=== PATIENT | female | born 1975 | race Caucasian/White ===

== ENCOUNTER 2021-05-29 10:22 | Day surgery (SDC) | payer BC ==
[~2021-05-29] VITALS: Ht 154.9 cm; Wt 90.9 kg
[~2021-05-29 10:22] MED LIST: BUPIVACAINE MPF 0.25% 30 ML VIAL. ONE; GABA300C18 PO; HYDR-2761 PO; LEXAPRO20 MG PO; OMEP40CA7 PO
[2021-05-29] MEDS ORDERED: IV RINGERS,LACTATED 1000ML 1,000 ML IV SCH ×2 (11:00→12:15)
--- NOTE | 2021-05-29 11:07 | PDOC1 ---
History and Physical Date of Service: DOS: DATE: 05/29/21 TIME: 11:06 Chief Complaint: Problems: (1) Closed left ankle fracture History of Present Illness: HPI: Patient here for her ankle fracture that occurred last Thursday after she fell on stairs. Seen in preop area no acute complaints. Nervous for surgery. Said she had a hysterectomy few years ago and took a prolonged time to recover from the anesthesia. Denies any heart or kidney problems. Denies having diabetes or previous stroke. Past Medical/Surgical History: PMH/PSH: Left ankle fracture, status post hysterectomy Allergies: Allergies: Coded Allergies: amoxicillin (Verified Adverse Reaction, Intermediate, Nausea and Vomiting, 05/29/21) clavulanic acid (Verified Adverse Reaction, Intermediate, Nausea and Vomiting, 05/29/21) Family History: Family History: noncontributory Social History: Social History: Social alcohol, smoker, denies drug use Current Medications: Current Medications Current Medications Cefazolin Sodium/ Dextrose 50 ml @ 100 mls/hr 1X PREOP PRN IV PRIOR TO PROCEDURE; Start 05/29/21 at 06:00; Stop 05/29/21 at 18:00 Bupivacaine HCl (Sensorcaine Mpf 0.25%) 30 ml STK-MED ONCE .ROUTE ; Start 05/29/21 at 10:22; Stop 05/29/21 at 10:23; Status DC Ringer's Solution 1,000 ml @ 100 mls/hr Q10H IV ; Start 05/29/21 at 11:00 Active Scripts Active Reported Omeprazole 40 Mg Capsule.dr 40 Mg PO DAILY Lexapro (Escitalopram Oxalate) 20 Mg Tablet 20 Mg PO HS Gabapentin 300 Mg Capsule 100 Mg PO TID Hydrocodone-Apap 5-325 (Hydrocodone Bit/Acetaminophen) 1 Tab Tablet 1 Tab PO PRN Q6HRS PRN ROS: Review of Systems Review of System Negative unless in HPI Physical Exam: Physcial Exam: GEN: No apparent distress. Alert and oriented HEENT: Normal cephalic, atraumatic, external auditory canals are patent EYES: Extraocular muscles are intact, pupil are equally round and reactive to light and accommodation MUSCULOSKELETAL: Well developed , well nourished, good range of motion ENDOCRINE: No thyromegaly was palpated LYMPHATICS: No cervical chain or axillary nodes were noted HEMATOPOIETIC: No bruising NECK: Supple, no JVD, no thyromegaly was noted LUNGS: Clear to auscultation in all lung luke without rhonchi or wheezing HEART: RRR, S1, S2 present. Peripheral pulses intact, no obvious murmurs noted ABDOMEN: Soft, nontender. Positive bowel sounds, no organomegaly, normal bowel sounds EXTREMITIES: Without clubbing, cyanosis, or edema. Pedal pulses intact. Negative Homans sign NEUROLOGIC: Normal speech and tone. A&O x 3, moves all extremities, no obvious focal deficits PSYCHIATRIC: Normal affect, normal mood. Stable SKIN: No ulcerations or rashes, good skin turgor, no jaundice VASCULAR: Good capillary refill, neurovascular bundle appears to be intact Assessment/Plan Assessment/Plan Preop for left ankle fracture Patient evaluated appropriate for surgery from my point of view. David is 0, low risk surgery. Justifications for Admission Other Justification JAXSON MANRIQUEZ MD May 29, 2021 11:07
[2021-05-29 11:08] VITALS: BP 159/92
[2021-05-29] MEDS ORDERED: SCOPOLAMINE 1.5MG PATCH. TD ONE (12:00)
[2021-05-29] MEDS ORDERED: fentaNYL PF VIAL 100 MCG/2 ML VIAL IVP ONE (12:15)
[2021-05-29] MEDS ORDERED: PROCHLORPERAZINE 10 MG/2 ML VIAL. IVP PRN (12:15)
[2021-05-29] MEDS ORDERED: HYDROmorphone 2 MG/ML VIAL IVP PRN (12:15)
[2021-05-29] MEDS ORDERED: MORPHINE SULFATE 2 MG/ML INJ. IVP PRN (12:15)
[2021-05-29] MEDS ORDERED: fentaNYL PF VIAL 100 MCG/2 ML VIAL IVP PRN (12:15)
[2021-05-29] MEDS ORDERED: LIDOCAINE 2% PF 5 ML VIAL. ONE (12:52)
[2021-05-29] MEDS ORDERED: PROPOFOL 10 MG/ML (20ML) VIAL. IV ONE ×2 (12:52→14:22)
[2021-05-29] MEDS ORDERED: ONDANSETRON PF 4 MG/2 ML VIAL. ONE (12:53)
[2021-05-29] MEDS ORDERED: DEXAMETHASONE SOD PHOS 4 MG/ML VIAL ONE (12:53)
[2021-05-29] MEDS ORDERED: KETOROLAC 30 MG/ML VIAL. ONE (12:53)
[2021-05-29] MEDS ORDERED: fentaNYL PF VIAL 100 MCG/2 ML VIAL ONE ×3 (12:55→16:22)
[2021-05-29] MEDS ORDERED: MIDAZOLAM HCL/PF 2 MG/2 ML VIAL. ONE (12:55)
[2021-05-29] MEDS ORDERED: SEVOFLURANE > 120 MINUTES. IH ONE (14:19)
[2021-05-29] MEDS ORDERED: HYDROmorphone 2 MG/ML VIAL ONE (15:40)
[2021-05-29] MEDS ORDERED: oxyCODONE/APAP 5/325 1 TAB TABLET PO ONE (16:15)
[2021-05-29] MEDS ORDERED: ACETAMINOPHEN 325 MG TABLET. PO ONE ×2 (16:15→16:35)
[2021-05-29] MEDS ORDERED: GABAPENTIN 100 MG CAPSULE. PO ONE (16:15)
--- NOTE | 2021-05-29 16:33 | PDOC4 ---
OPERATIVE NOTE Date: Date: May 29, 2021 Pre-Op Diagnosis: Left ankle trimalleolar fracture Post-Op Diagnosis: Same as above Procedure Performed: Left ankle open reduction and internal fixation with syndesmotic joint stabilization Surgeon: Angel Luis Woods DPM Anesthesia Type: General Blood Loss: 5 cc Specimans Obtained: None Findings: Long spiral fracture to the distal fibula, comminuted vertical avulsion fracture to the medial malleolus. Unstable syndesmotic joint upon stress. Complications: None Operative Note: Under mild sedation, patient was brought into the operating room and placed on an operating table in a supine position. Following a formal timeout, patient's identity, procedure and procedure sites were confirmed. Following IV prophylactic antibiotics, general anesthesia, a well-padded thigh tourniquet was placed to the left lower extremity. Then the left lower extremity was then scrubbed, prepped and draped using standard aseptic techniques. An Esmarch was used to exsanguinate the left foot and ankle and tourniquet was inflated to 250 millimercury. The attention was directed to the left ankle where a standard lateral approach was performed. Great care was taken to identify and retract all the neurovascular bundles including the superficial peroneal nerve. All bleeders were cauterized as necessary. Using sharp and blunt dissection, incision was taken deep to periosteum which was incised. Intraoperatively, we found a long spiral fracture to the distal fibula. The hematoma was evacuated and all interposed periosteum was removed from the fracture site. The wound was irrigated with copious saline then. At this time, the fracture was reduced with 2 bone clamps. Using standard AO technique, the fracture was stabilized with 3.5 millimeter screws from A to P. Intraoperative x-ray noted adequate fibular length cheondoism with restored dime sign. Then a standard anatomical fibular plate was placed to the lateral fibula and temporarily affixed with 2 olive wires. Intraoperative x-ray noted adequate position allowing 2 syndesmotic screws and adequate proximal fracture bridging. Then using standard AO techniques, a combination of locking and nonlocking 3.5 millimeter screws were used to affix the plate to the fibula. Again intraoperative x-ray noted adequate hardware position and length. The third malleolus fracture was spontaneously reduced based on x-ray on the lateral view as well. Then, the attention was directed to the medial left ankle where a standard linear incision was performed. Incision was carried deep using sharp and blunt dissection down to level of periosteum which was then incised. Care was taken to retract all the neurovascular bundles and all bleeders were cauterized as needed. Fracture was identified in a vertical pattern biased towards the posterior colliculus extending proximally encompassing at least one third of the distal medial malleolus. Distally, there were mild comminuted fractures to the lateral medial malleolus as well however not involving the gutter or articular surface. On the medial malleolus. All interposed periosteum was reflected and resected. The posterior tibial tendon was identified and protected throughout the procedure. Fracture site was reduced with a bone clamp. Next an antiglide plate was chosen over the screw fixation. The hook plate was not able to conform and capture the distal medial malleolar fragment. The trick screw with 3.5 mm fully threaded screw was placed into the proximal hole and then sequentially the distal screws were filled using standard AO techniques affixing the plate to the fracture site across the medial malleolus. The PT tendon was noted to posterior and free from bounding to the plate and hardware fixation. However given the contour of the distal malleolus, the plate was slightly palpable and prominent only at the distal margin. Final imaging were taken to verify position and length of the hardware which appeared adequate and ankle mortise was anatomical. Intraoperative syndesmotic stress test was performed which noted mild diastases across the tib-fib. Then two 3.5 mm cortical screws were placed through the distal lateral fibular plate traversing 3 cortices each to affix and stabilize the syndesmotic join with the foot held in a slightly adducted and internally rotated position to prevent overtensioning. Per literature review, the size of the screw, cortices traversed are insignificant for the stability and function outcome for syndesmotic stabilization. The hardware position, trajectory and le ngth were confirmed with satisfactory using intraoperative x-ray. Then stress test was noted negative. A lateral ankle x-ray was taken to confirm the reduction of the third malleolus. Stress test with a dental pick was insignificant for displacement of the Volkman's fracture. Then the decision was to not to fix the third malleolus especially as the syndesmotic joint was stabilized with 2 screws. The surgical sites were irrigated with copious saline solution. They were then closed in layers with 3-0 Vicryl, 4 Monocryl and 4-0 nylon. Then the surgical sites were anesthetized with 18 cc of 0.25% Marcaine plain. The sites were d ressed with Betadine soaked Adaptic, 4 x 4, ABD. The left lower extremity was then immobilized in a modified Ward compression splint with ankle held near 90 degrees. Then the tourniquet was deflated and adequate digital perfusion was noted. Patient tolerated the procedure and anesthesia well and then transferred to PACU for continuous recovery. Pending left ankle 3 view x-ray. ANGEL LUIS WOODS DPM May 29, 2021 16:33
[2021-05-29] MEDS: fentaNYL PF VIAL 100 MCG/2 ML VIAL IVP PRN ×2 (16:44→16:50)
[2021-05-29] MEDS ORDERED: MORPHINE SULFATE 2 MG/ML INJ. ONE (16:46)
[2021-05-29 17:20] VITALS: BP 128/78
--- NOTE | 2021-05-30 11:16 | RAD ---
EXAM: 3 views of the left ankle DATE: 05/29/2021 4:16 PM INDICATION: Left ankle fracture COMPARISON: No Prior FINDINGS/ IMPRESSION: 1. Overlying cast obscures fine bony detail. Screw plate fixation of the distal tibial and fibular f ractures in good alignment without definite hardware complication. 2. Ankle mortise is congruent. Talar dome is intact. Electronically signed by: Cirilo Marroquin MD (05/30/2021 11:13 AM) [id number]
== END 2021-05-29 17:45 | disposition home or self-care (01) ==
LOC: SURG 10:22
PROVIDERS: ATTEND Podiatrist
DX: S82.852A Displaced trimalleolar fracture of left lower leg, initial encounter for closed fracture (principal); K21.9 Gastro-esophageal reflux disease without esophagitis; F41.9 Anxiety disorder, unspecified; Z98.51 Tubal ligation status; Z90.710 Acquired absence of both cervix and uterus; Z98.890 Other specified postprocedural states; Z79.899 Other long term (current) drug therapy; Z87.891 Personal history of nicotine dependence; Z88.0 Allergy status to penicillin; Z88.8 Allergy status to other drugs, medicaments and biological substances; Z72.89 Other problems related to lifestyle; X58.XXXA Exposure to other specified factors, initial encounter; Y93.89 Activity, other specified; Y92.89 Other specified places as the place of occurrence of the external cause; Y99.8 Other external cause status
CPT/HCPCS: 27822; 27829; 36415; 73610; 82306; A4930; A6223; A6253; A6402; A6449; A6450; C1713; J0690; J1100; J1170; J1885; J2250; J2270; J2405; J2704; J3010; J3490; 76000; A6455